=== PATIENT | male | born 1945 | race Caucasian/White ===

== ENCOUNTER → 2019-04-26 10:48 | Outpatient (BNVA) | payer MEDICARE, SELFPAY | PROVIDERS: Family Provider Family Medicine; PCP Family Medicine | DX: N18.3 Chronic kidney disease, stage 3 (moderate) (principal) | CPT/HCPCS: 80048 ==

== ENCOUNTER → 2019-05-18 17:04 | Outpatient (BNVA) | payer MEDICARE, SELFPAY | PROVIDERS: Family Provider Family Medicine; PCP Family Medicine; Visit Provider Family Medicine | DX: R42 Dizziness and giddiness (principal); E11.8 Type 2 diabetes mellitus with unspecified complications; F41.1 Generalized anxiety disorder; M25.551 Pain in right hip; I50.32 Chronic diastolic (congestive) heart failure; R21 Rash and other nonspecific skin eruption | CPT/HCPCS: 80048 ==

== ENCOUNTER → 2019-08-03 08:30 | Outpatient (BNVA) | payer MEDICARE, SELFPAY | PROVIDERS: Family Provider Family Medicine; PCP Family Medicine; Referring Provider Internal Medicine; Visit Provider Internal Medicine | DX: N18.9 Chronic kidney disease, unspecified (principal); E11.8 Type 2 diabetes mellitus with unspecified complications; Z79.4 Long term (current) use of insulin; I50.9 Heart failure, unspecified | CPT/HCPCS: 80069; 82306; 82570; 83036; 83880; 84156 ==

== ENCOUNTER 2019-12-13 02:32 | Emergency (ER) | payer MEDICARE, SELFPAY ==
[2019-12-13 02:34] VITALS: BP 89/72; PULSE 95; RESP 20; TEMP 37.2; O2SAT 94; BMI 38.7
--- NOTE | 2019-12-13 02:39 | XRR_ITS ---
PROCEDURE INFORMATION: Exam: XR Chest, 1 View Exam date and time: 12/13/2019 3:03 AM Age: 74 years old Clinical indication: Shortness of breath and other: Weakness; Patient HX: C/O shortness of breath and weakness TECHNIQUE: Imaging protocol: XR of the chest Views: 1 view. COMPARISON: CR Chest 1 [place] [id number] 04/28/2016 3:10 PM FINDINGS: Lungs: Lungs are well aerated without a focal area of consolidation. Pleural space: Unremarkable. No pleural effusion. No pneumothorax. Heart/Mediastinum: Unremarkable. No cardiomegaly. Bones/joints: Severe degenerative changes within the glenohumeral joints XR/XR chest 1V portable [id number] IMPRESSION: Lungs are well aerated without a focal area of consolidation.
--- NOTE | 2019-12-13 02:39 | CTR_ITS ---
PROCEDURE INFORMATION: Exam: CT Head Without Contrast Exam date and time: 12/13/2019 2:40 AM Age: 74 years old Clinical indication: Weakness, extremity; Bilateral TECHNIQUE: Imaging protocol: Computed tomography of the head without contrast. Radiation optimization: All CT scans at this facility use at least one of these dose optimization techniques: automated exposure control; mA and/or kV adjustment per patient size (includes targeted exams where dose is matched to clinical indication); or iterative reconstruction. COMPARISON: No relevant prior studies available. RADIATION DOSE METRICS: Total DLP (mGy-cm): 965.15 FINDINGS: Brain: No acute intracranial hemorrhage or mass effect. There is decreased attenuation in the periventricular white matter, likely from microvascular disease. No definite acute infarct by CT. MRI could be more sensitive/specific for detection, as clinically directed. Ventricles: Ventricle size is normal for age. Bones/joints: No definite acute skull fracture. Sinuses: Included paranasal sinuses are essentially clear. Mastoid air cells: No significant acute finding. Vasculature: Vascular calcifications in the internal carotid and vertebral basilar systems. CT/CT head wo con* [id number] IMPRESSION: 1. No acute intracranial hemorrhage or mass effect. 2. Changes of microvascular disease. 3. No definite acute infarct by CT, see above. 4. Other findings discussed above. Radiation Dose CTDIVOL = (mGy): DLP = 965.15 (mGy-cm)
--- NOTE | 2019-12-13 02:39 | ECG_ITS ---
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 Measurements Intervals [place] Rate: 99 P: 48 AR: 176 QRS: -22 QRSD: 138 T: 28 QT: 367 QTc: 471 Interpretive Statements SINUS RHYTHM WITH FREQUENT VENTRICULAR PREMATURE COMPLEXES RIGHT BUNDLE BRANCH BLOCK [120+ ms QRS DURATION, UPRIGHT V1, 40+ ms S IN I/aVL/V4/V5/V6] INFERIOR MYOCARDIAL INFARCTION , PROBABLY OLD [40+ ms Q WAVE AND/OR ST/T ABNORMALITY IN II/aVF] Compared to ECG 09/04/2016 13:58:53 Myocardial infarct finding now present Electronically Signed On 12-13-2019 18:50:14 CDT by Moe Cahvarria M.D. [email or web address]/store/OM/[id number]
--- NOTE | 2019-12-13 02:56 | ED_ITS ---
HPI - Weakness General: Chief complaint: Weakness Stated complaint: WEAKNESS Time Seen by Provider: 12/13/19 02:33 Source: patient and EMS Mode of arrival: EMS Limitations: no limitations History of Present Illness: HPI Narrative: 74-year-old male states his last week and he has been having generalized weakness at home. Patient lives with family states he has difficulty walking and has not been taking care of himself. Patient has had decreased oral intake. Patient here is disheveled. He denies any chest pain or abdominal pain. He has had some confusion and does have chronic dementia as well. Denies any fevers. Complaint: generalized weakness Onset (ago): day(s) Associated symptoms: Denies chest pain, chills, dysuria, easy bruising, fever(s), nausea or vomiting Review of Systems Const: Denies: fever(s), chills, body aches or change in appetite Eyes: Denies: blurry vision or eye discomfort ENMT: Denies: throat pain or dental pain Card: Denies: chest pain Resp: Denies: dyspnea GI: Denies: abdominal pain, nausea, vomiting or diarrhea : Denies: dysuria Musc: Denies: neck pain or back pain Skin/Breast: Denies: rash Neuro: Reports: weakness in extremities Psych: Denies: depression Michael/Lymph: Denies: easy bruising All/Imm: Denies: urticaria PFSH ED PFSH: Medical History Arteriosclerotic cardiovascular disease Chronic pain syndrome CKD (chronic kidney disease) Follows with Nephrology Congestive heart failure No on K replacement due to hx hyperkalemia Controlled diabetes mellitus with complication, with long-term current use of insulin COPD (chronic obstructive pulmonary disease) Diabetic neuropathy associated with type 2 diabetes mellitus Essential hypertension MERT (generalized anxiety disorder) Hyperkalemia Hyperlipidemia IBS (irritable bowel syndrome) Left kidney mass Toe osteomyelitis, right Social History Smoking and tobacco status: former smoker Alcohol intake: former Current gender identity: Male Physical Exam Const: COMMON NORMALS: patient oriented x3 GENERAL APPEARANCE: disheveled and ill appearing HENMT: COMMON NORMALS: normocephalic and atraumatic HEAD & SCALP: normocephalic and atraumatic Eye: COMMON NORMALS: Equal, round and reactive pupils present and EOMs intact bilaterally PUPIL: Yes Equal, round and reactive pupils present Neck/C-Spine: COMMON NORMALS: full ROM and supple Chest: COMMONS NORMALS: normal inspection of the chest and normal palpation of entire chest wall Resp: COMMON NORMALS: normal respiratory effort, No retractions, No use of accessory muscles and clear to auscultation bilaterally AUSCULTATION: clear to auscultation bilaterally Cardio: COMMON NORMALS: regular rate, regular rhythm and No murmurs present (Cardio) RATE: regular rate RHYTHM: regular rhythm GI: COMMON NORMALS: Normal to inspection, nondistended, normoactive bowel sounds present, Soft to palpation, non-tender and no masses PALPATION: Yes Soft to palpation Extremity: COMMON NORMALS: normal to inspection and full ROM Neuro: COMMON NORMALS: patient oriented x3, moves all extremities and no focal motor deficits Psych: COMMON NORMALS: mental status grossly normal, Normal thought process present and cooperative THOUGHT PROCESS: Normal thought process present Skin: COMMON NORMALS: no rashes or lesions noted and no wounds GENERAL SKIN EXAM: no rashes or lesions noted Course Vital Signs: Vital signs: Vital Signs Temperature 99.0 F 12/13/19 02:34 Pulse Rate 88 12/13/19 05:22 Respiratory Rate 22 H 12/13/19 06:16 Blood Pressure 142/70 12/13/19 05:22 Pulse Oximetry 95 12/13/19 05:22 MDM - Weakness MDM Narrative: Medical decision making narrative: 74-year-old male who presents here with generalized weakness and low-grade fevers and slight dyspnea. Had a long talk with family and patient he states that he has been too weak to ambulate or take care of himself. Patient did test positive for coronavirus. Family states he not feel that he is safe at home at this time due to his weakness. Do not have any bed availability here for the viral ICU for coronavirus. Will transfer to [facility] at this time for bed availability. Lab Data: Labs: Lab Results 12/13/19 12/13/19 12/13/19 Range/Units 02:45 02:45 03:11 WBC 5.9 (4.0-10.0) 10^3/ uL RBC 4.00 L (4.1-5.3) 10^6/u L Hgb 11.6 L (11.7-16.6) g/dL Hct 36.4 L (42.0-52.0) % MCV 91.0 (80-94) fL MCH 29.0 (28.0-34.0) pg MCHC 31.9 (30.0-36.0) g/dL RDW 15.8 H (12.1-15.1) % Plt Count 270 (130-400) 10^3/c mm MPV 9.1 (7.4-10.4) fL Neut % (Auto) 76.9 % Lymph % (Auto) 13.8 % [place] % (Auto) 8.4 % Eos % (Auto) 0.3 % Baso % (Auto) 0.3 % Neut # (Auto) 4.55 (1.8-7.7) 10^3/u L Lymph # (Auto) 0.8 (0.8-4.8) 10^3/u L [place] # (Auto) 0.5 (0.2-0.9) 10^3/u L Eos # (Auto) 0.0 (0.0-0.8) 10^3/u L Baso # (Auto) 0.0 (0.0-0.1) 10^3/u L Nucleated RBC % (a uto) 0 % Nucleated RBCs # 0.0 /100WBC PT 12.40 (12.1-14.9) SECO NDS INR 0.90 (0.8-1.2) Sodium 133 L (136-145) mmol/L Potassium 5.3 H (3.5-5.1) mmol/L Chloride 99 (98-107) mmol/L Carbon Dioxide 22 (22-29) mmol/L Anion Gap 17.3 (5-19) BUN 31 H (8-23) mg/dL Creatinine 2.2 H (0.7-1.2) mg/dL GFR Calculation Not Reportable Glucose 106 (65-115) mg/dL Calculated Osmolal ity 274 L (285-295) mOsm/k g Lactate (0.5-2.2) mmol/L Calcium 8.9 (8.5-10.5) mg/dL Magnesium 2.0 (1.7-2.3) mg/dL Total Bilirubin 0.2 (0.15-1.2) mg/dL AST 33 (0-40) U/L ALT 25 (0-41) U/L Alkaline Phosphata se 142 H (40-130) IU/L Total Protein 7.0 (6.6-8.7) g/dL Albumin 3.9 (3.5-5.2) g/dL Globulin 3.1 (1.3-4.6) g/dL Urine Color (Yellow) Urine Appearance (CLEAR) Urine pH (5-7) Ur Specific Gravit y (1.005-1.030) Urine Protein (Negative) Urine Glucose (UA) (Normal) Urine Ketones (Negative) Urine Blood (Negative) Urine Nitrate (Negative) Urine Bilirubin (NEGATIVE) Urine Urobilinogen (Negative) mg/dL Ur Leukocyte Laila ase (Negative) Urine RBC (0-2) /hpf Urine WBC (0-5) /hpf Ur Squamous Epith Cells (0-5) Amorphous Sediment Urine Bacteria (NONE) SARS-CoV-2 Ag (Rap id) (Negative) 12/13/19 12/13/19 12/13/19 Range/Units 03:11 03:40 04:45 WBC (4.0-10.0) 10^3/ uL RBC (4.1-5.3) 10^6/u L Hgb (11.7-16.6) g/dL Hct (42.0-52.0) % MCV (80-94) fL MCH (28.0-34.0) pg MCHC (30.0-36.0) g/dL RDW (12.1-15.1) % Plt Count (130-400) 10^3/c mm MPV (7.4-10.4) fL Neut % (Auto) % Lymph % (Auto) % [place] % (Auto) % Eos % (Auto) % Baso % (Auto) % Neut # (Auto) (1.8-7.7) 10^3/u L Lymph # (Auto) (0.8-4.8) 10^3/u L [place] # (Auto) (0.2-0.9) 10^3/u L Eos # (Auto) (0.0-0.8) 10^3/u L Baso # (Auto) (0.0-0.1) 10^3/u L Nucleated RBC % (a uto) % Nucleated RBCs # /100WBC PT (12.1-14.9) SECO NDS INR (0.8-1.2) Sodium (136-145) mmol/L Potassium (3.5-5.1) mmol/L Chloride (98-107) mmol/L Carbon Dioxide (22-29) mmol/L Anion Gap (5-19) BUN (8-23) mg/dL Creatinine (0.7-1.2) mg/dL GFR Calculation Glucose (65-115) mg/dL Calculated Osmolal ity (285-295) mOsm/k g Lactate 1.0 (0.5-2.2) mmol/L Calcium (8.5-10.5) mg/dL Magnesium (1.7-2.3) mg/dL Total Bilirubin (0.15-1.2) mg/dL AST (0-40) U/L ALT (0-41) U/L Alkaline Phosphata se (40-130) IU/L Total Protein (6.6-8.7) g/dL Albumin (3.5-5.2) g/dL Globulin (1.3-4.6) g/dL Urine Color Yellow (Yellow) Urine Appearance Clear (CLEAR) Urine pH 5 (5-7) Ur Specific Gravit y 1.020 (1.005-1.030) Urine Protein 1+ H (Negative) Urine Glucose (UA) Norm (Normal) Urine Ketones Negative (Negative) Urine Blood Neg (Negative) Urine Nitrate Negative (Negative) Urine Bilirubin Neg (NEGATIVE) Urine Urobilinogen Norm (Negative) mg/dL Ur Leukocyte Laila ase Negative (Negative) Urine RBC None (0-2) /hpf Urine WBC None (0-5) /hpf Ur Squamous Epith Cells None (0-5) Amorphous Sediment Not Reportable Urine Bacteria Trace (NONE) SARS-CoV-2 Ag (Rap id) Positive H (Negative) Imaging Data^: CT Head: Attestation: I personally reviewed and interpreted this imaging study as follows: Radiologist's impression: [address] [address] [address] Scan Report Signed Patient: Tom Garza Unit #: [id number] : 1945 Age/Sex: 74 / M ADM Date: 12/13/19 Loc: ER Room/Bed: Attending Dr: Ordering Provider/Ordering MD: Jae Suazo MD Date of Service: 12/13/19 Procedure(s): CT head wo con* [id number] Accession Number(s): [id number] Report Number: [id number] PROCEDURE INFORMATION: Exam: CT Head Without Contrast Exam date and time: 12/13/2019 2:40 AM Age: 74 years old Clinical indication: Weakness, extremity; Bilateral TECHNIQUE: Imaging protocol: Computed tomography of the head without contrast. Radiation optimization: All CT scans at this facility use at least one of these dose optimization techniques: automated exposure control; mA and/or kV adjustment per patient size (includes targeted exams where dose is matched to clinical indication); or iterative reconstruction. COMPARISON: No relevant prior studies available. RADIATION DOSE METRICS: Total DLP (mGy-cm): 965.15 FINDINGS: Brain: No acute intracranial hemorrhage or mass effect. There is decreased attenuation in the periventricular white matter, likely from microvascular disease. No definite acute infarct by CT. MRI could be more sensitive/specific for detection, as clinically directed. Ventricles: Ventricle size is normal for age. Bones/joints: No definite acute skull fracture. Sinuses: Included paranasal sinuses are essentially clear. Mastoid air cells: No significant acute finding. Vasculature: Vascular calcifications in the internal carotid and vertebral basilar systems. CT/CT head wo con* [id number] IMPRESSION: 1. No acute intracranial hemorrhage or mass effect. 2. Changes of microvascular disease. 3. No definite acute infarct by CT, see above. 4. Other findings discussed above. EKG Data^: EKG 1: Attestation: I personally reviewed and interpreted this EKG as follows: EKG interpretation date: 12/13/19 EKG interpretation time: 03:36 Interpretation: nsr [address] or t wave abnormalities qrs 138 qtc 423 Discharge Plan Discharge Patient Disposition: Home Clinical Impression: COVID-19, Weakness Condition: Stable Prescriptions: No Action oxycodone-acetaminophen 5-325 mg tablet 1 tab PO DAILY PRN (Reason: pain) 30 Days Qty: 30 RF: 0 clotrimazole-betamethasone 1-0.05 % cream 1 applic TOPICAL BID 14 Days Qty: 45 RF: 1 (DME) pen needle, diabetic [Comfort EZ Pen [place]] 31 gauge x 1/4 needle See Rx Instructions .ROUTE .MEDSUPPLY Qty: 30 RF: 0 Combivent Respimat 20-100 mcg/actuation mist 1 puff INHALATION QID RF: 0 nitroglycerin [Nitrostat] 0.4 mg tablet, sublingual 0.4 mg SUBLINGUAL Q5M PRNRF: 0 carvedilol 3.125 mg tablet 3.125 mg PO BID 90 Days Qty: 180 RF: 1 azithromycin 250 mg tablet See Rx Instructions PO .COMPLEX Qty: 6 RF: 0 isosorbide mononitrate 30 mg tablet extended release 24 hr 30 mg PO QAM Qty: 90 RF: 0 Combivent Respimat 20-100 mcg/actuation mist 1 puff INHALATION QID Qty: 4 RF: 2 duloxetine 30 mg capsule,delayed release(DR/EC) See Rx Instructions .ROUTE .COMPLEX Qty: 60 RF: 2 fluticasone propionate 50 mcg/actuation spray,suspension See Rx Instructions .ROUTE .COMPLEX Qty: 16 RF: 1 sitagliptin [Januvia] 25 mg tablet See Rx Instructions .ROUTE .COMPLEX Qty: 90 RF: 1 insulin detemir U-100 [Levemir FlexTouch U-100 Insuln] 100 unit/mL (3 mL) insulin pen See Rx Instructions .ROUTE .COMPLEX Qty: 15 RF: 1 clonazepam 0.5 mg tablet 0.5 mg PO BID 7 Days Qty: 14 RF: 0 Referrals: Jaymie Boss MD [Primary Care Provider] - Coding Level of Care Code ED Medical Operations Supervisor for Chg Fwd Exam Comprehensive
[2019-12-13 03:16] LABS: Alanine Aminotransferase 25 U/L (0-41); Albumin Level 3.9 g/dL (3.5-5.2); Alkaline Phosphatase 142 IU/L (40-130); Blood Urea Nitrogen 31 mg/dL (8-23); Calcium 8.9 mg/dL (8.5-10.5); Carbon Dioxide 22 mmol/L (22-29); Chloride 99 mmol/L (98-107); Globulin 3.1 g/dL (1.3-4.6); Glucose 106 mg/dL (65-115); Osmolality Calculated 274 mOsm/kg (285-295); Sodium 133 mmol/L (136-145); Total Bilirubin 0.2 mg/dL (0.15-1.2)
[2019-12-13] MEDS: sodium chloride 0.9% 1,000 ML 999 ML IV (03:16)
[2019-12-13 03:17] LABS: Anion Gap 17.3 (5-19); Aspartate Amino Transferase 33 U/L (0-40); Potassium 5.3 mmol/L (3.5-5.1)
[2019-12-13 03:37] LABS: Basophils % 0.3 %; Eosinophils % 0.3 %; Hematocrit 36.4 % (42.0-52.0); Hemoglobin 11.6 g/dL (11.7-16.6); Lymphocytes # 0.8 10^3/uL (0.8-4.8); Lymphocytes % 13.8 %; Mean Corpuscular HGB Conc 31.9 g/dL (30.0-36.0); Mean Platelet Volume 9.1 fL (7.4-10.4); Monocytes # 0.5 10^3/uL (0.2-0.9); Monocytes % 8.4 %; Neutrophils # 4.55 10^3/uL (1.8-7.7); Neutrophils % 76.9 %; Nucleated Red Blood Cells % 0 %; Platelet Count 270 10^3/cmm (130-400); Red Cell Distribution Width 15.8 % (12.1-15.1); White Blood Count 5.9 10^3/uL (4.0-10.0)
[2019-12-13 04:50] LABS: Add Urine Microscopic? YES; Bacteria Urine TRACE; Bilirubin Urine Neg (NEGATIVE); Blood Urine Neg (Negative); Glucose Urine UA Norm (Normal); Ketones Urine Negative (Negative); Leukocyte Esterase Urine Negative (Negative); Nitrate Urine Negative (Negative); Protein Urine 1+ (Negative); Urine Appearance Clear (CLEAR); Urine Color Yellow (Yellow); Urobilinogen Urine Norm (Negative); pH Urine 5 (5-7)
[2019-12-13 05:22] VITALS: BP 142/70; PULSE 88; RESP 22; O2SAT 95
[2019-12-13 05:25] LABS: SARS Covid-2 Antigen Positive (Negative)
--- NOTE | 2019-12-13 05:48 | PC.NURSE ---
Patient's daughter was asked to leave the patient's room when the patient was to be covid tested. Patient test results are positive. Updated patient's daughter on her quarentine status along with the family members that live with the patient.
[2019-12-13 06:16] VITALS: RESP 22
[2019-12-13] MEDS: morphine 4 mg/mL SDV 1 mL IVP (06:16)
[2019-12-13] MEDS: sodium chloride 0.9% 500 ML 999 ML IV (06:16)
[2019-12-13 06:36] LABS: Procalcitonin 0.29 ng/mL (0-0.5)
[2019-12-13 06:39] VITALS: BP 173/84; PULSE 87; RESP 20; O2SAT 92
--- NOTE | 2019-12-13 06:43 | PC.NURSE ---
Patient's daughter (Lupis) called for an update. Family asks that they be notified when the patient leaves to be transferred to another facility. Lupis If No Answer then call Amy
[2019-12-13 06:47] LABS: C Reactive Protein 39.1 mg/L (0.0-4.9)
[2019-12-13 06:52] LABS: Fibrinogen 413 mg/dL (174-498)
--- NOTE | 2019-12-13 06:55 | PC.NURSE ---
Resumed care at this time. SCOOTER Joseph called report to Alex Yap.
[2019-12-13 07:35] VITALS: BP 130/82; PULSE 93; RESP 18; O2SAT 90
== END 2019-12-13 07:41 | disposition other institution (70) ==
PROVIDERS: Emergency Provider Emergency Medicine; PCP Family Medicine
DX: U07.1 COVID-19 (principal); R53.1 Weakness; Z79.4 Long term (current) use of insulin; I11.0 Hypertensive heart disease with heart failure; I50.9 Heart failure, unspecified; J44.9 Chronic obstructive pulmonary disease, unspecified; E11.40 Type 2 diabetes mellitus with diabetic neuropathy, unspecified; E78.5 Hyperlipidemia, unspecified; Z87.891 Personal history of nicotine dependence
CPT/HCPCS: 12345; 70450; 71045; 80053; 81001; 83605; 83735; 84145; 85025; 85384; 85610; 86140; 87426; 93005; 96360; 96361; 96374; 96375; 99283; 99285; J2270; J7030; J7040

== ENCOUNTER 2020-01-01 15:08 | Emergency (ER) | payer MEDICARE, SELFPAY ==
[2020-01-01 15:11] VITALS: BP 170/71; PULSE 122; RESP 20; TEMP 38.2; O2SAT 100; BMI 35.6
--- NOTE | 2020-01-01 15:18 | XRR_ITS ---
PROCEDURE INFORMATION: Exam: XR Chest, 1 View Exam date and time: 01/01/2020 3:42 PM Age: 74 years old Clinical indication: Shortness of breath; Additional info: SOB TECHNIQUE: Imaging protocol: XR of the chest Views: 1 view. COMPARISON: CR XR chest 1V portable [id number] 12/13/2019 2:54 AM FINDINGS: Lungs: Unremarkable. No consolidation. Pleural space: Unremarkable. No pleural effusion. No pneumothorax. Heart/Mediastinum: Unremarkable. No cardiomegaly. Bones/joints: Unremarkable. XR/XR chest 1V portable [id number] IMPRESSION: No acute findings.
--- NOTE | 2020-01-01 15:19 | ECG_ITS ---
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 Measurements Intervals [place] Rate: 116 P: 72 IN: 179 QRS: -33 QRSD: 138 T: 54 QT: 331 QTc: 461 Interpretive Statements SINUS TACHYCARDIA WITH FREQUENT VENTRICULAR PREMATURE COMPLEXES LEFT AXIS DEVIATION [QRS AXIS < -30] RIGHT BUNDLE BRANCH BLOCK [120+ ms QRS DURATION, UPRIGHT V1, 40+ ms S IN I/aVL/V4/V5/V6] INFERIOR MYOCARDIAL INFARCTION , PROBABLY OLD Compared to ECG 12/13/2019 03:36:52 Left-axis deviation now present Sinus rhythm no longer present Electronically Signed On 01-01-2020 18:55:02 CDT by Perico Cazares M.D. [id number]
[2020-01-01] MEDS: acetaminophen 325 mg Tablet 650 MG PO (15:28)
[2020-01-01] MEDS: ondansetron 2 mg/ML SDV 2 mL 4 MG IV (15:28)
[2020-01-01 15:46] VITALS: O2SAT 100
[2020-01-01 15:50] LABS: Basophils # 0.1 10^3/uL (0.0-0.1); Basophils % 0.7 %; Eosinophils # 0.2 10^3/uL (0.0-0.8); Eosinophils % 2.9 %; Lymphocytes # 1.1 10^3/uL (0.8-4.8); Lymphocytes % 15.5 %; Mean Corpuscular HGB Conc 32.1 g/dL (30.0-36.0); Mean Corpuscular Hemoglobin 28.8 pg (28.0-34.0); Mean Corpuscular Volume 89.7 fL (80-94); Mean Platelet Volume 8.9 fL (7.4-10.4); Monocytes # 0.8 10^3/uL (0.2-0.9); Monocytes % 10.7 %; Neutrophils # 5.14 10^3/uL (1.8-7.7); Neutrophils % 69.9 %; Nucleated Red Blood Cells % 0 %; Platelet Count 297 10^3/cmm (130-400); Red Blood Count 3.12 10^6/uL (4.1-5.3); Red Cell Distribution Width 15.5 % (12.1-15.1); White Blood Count 7.4 10^3/uL (4.0-10.0)
[2020-01-01 16:02] LABS: INR 0.97 (0.8-1.2)
[2020-01-01 16:04] LABS: D Dimer 2.28 ug/mIFEU (0-0.59)
[2020-01-01 16:06] LABS: Lactic Sepsis W/Reflex 1.1 mmol/L (0.5-2.2)
[2020-01-01 16:09] LABS: Troponin(5th) Baseline 126 ng/L (0-15)
[2020-01-01 16:16] LABS: NT Pro B Type Natriuretic Pept 1131 pg/mL (0-125); Procalcitonin 0.38 ng/mL (0-0.5)
[2020-01-01] MEDS: sodium chloride 0.9% 1,000 ML 150 ML IV (16:24)
[2020-01-01 16:27] LABS: Alanine Aminotransferase 20 U/L (0-41); Albumin Level 3.5 g/dL (3.5-5.2); Alkaline Phosphatase 115 IU/L (40-130); Anion Gap 15.5 (5-19); Aspartate Amino Transferase 21 U/L (0-40); Blood Urea Nitrogen 22 mg/dL (8-23); C Reactive Protein 48.1 mg/L (0.0-4.9); Calcium 8.1 mg/dL (8.5-10.5); Carbon Dioxide 15 mmol/L (22-29); Chloride 104 mmol/L (98-107); Creatinine Clr Calc Pharmacy 45.0226; Glucose 129 mg/dL (65-115); Magnesium 1.5 mg/dL (1.7-2.3); Osmolality Calculated 275 mOsm/kg (285-295); Potassium 4.5 mmol/L (3.5-5.1); Sodium 130 mmol/L (136-145); Total Bilirubin 0.2 mg/dL (0.15-1.2); Total Protein 6.5 g/dL (6.6-8.7)
[2020-01-01 16:33] VITALS: BP 126/89; PULSE 98; TEMP 37.5; O2SAT 99
[2020-01-01 17:12] LABS: Influenza A by IFA Negative (Negative); Influenza B by IFA Negative (Negative)
[2020-01-01 17:13] LABS: SARS Covid-2 Antigen Negative (Negative)
--- NOTE | 2020-01-01 17:19 | ED_ITS ---
HPI - Arrhythmia/Palpitations General: Chief Complaint: Arrhythmia/Palpitations Stated Complaint: sob/fast HR/COVID + Time Seen by Provider: 01/01/20 15:18 History of Present Illness: HPI narrative: This patient is a 74-year-old male who presents today with chest pain and shortness of breath. According to his family he has been confused and they think he is hallucinating. They think he might have dementia. His about 3 weeks ago and he has been going downhill since then. Also shortly after her he contracted coronavirus and was admitted to [facility] although his daughter tells me that he was asymptomatic . He had a appointment at the doctor today and they were concerned that he was breathing hard and tachycardic. Apparently he has been complaining of a cough. He was sent to the ED for evaluation. On arrival he complained of some chest pain and shortness of breath. He was very weak and required assistance from 2 staff members to get him from the wheelchair to the bed. He is a diabetic. He is not able to give a very detailed history. Associated symptoms: Reports cough Review of Systems General: Reports: 10 or more systems reviewed and unremarkable except in HPI and below (Questionable reliability) Const: Reports: malaise Card: Reports: chest pain, edema and swelling of feet/ankles GI: Reports: diarrhea (All the time per patient) Skin/Breast: Reports: non-healing lesions (Toes, says he sees wound care in [place]) Psych: Reports: depression and sleeping less (Family reports that he has been up since 1 in the morning yelling for his .) [facility] PFSH: Medical History Arteriosclerotic cardiovascular disease Chronic pain syndrome CKD (chronic kidney disease) Follows with Nephrology Congestive heart failure No on K replacement due to hx hyperkalemia Controlled diabetes mellitus with complication, with long-term current use of insulin COPD (chronic obstructive pulmonary disease) Diabetic neuropathy associated with type 2 diabetes mellitus Essential hypertension MERT (generalized anxiety disorder) Hyperkalemia Hyperlipidemia IBS (irritable bowel syndrome) Left kidney mass Toe osteomyelitis, right Social History Smoking and tobacco status: former smoker Alcohol intake: former Current gender identity: Male Physical Exam Narrative: EXAM NARRATIVE: Unkempt and frail-appearing Const: COMMON NORMALS: alert GENERAL APPEARANCE: cooperative HENMT: HEAD & SCALP: normal to inspection FACE & SINUS: normal facial exam Eye: GENERAL EYE: appearance normal, both eyes and all related structures Neck/C-Spine: COMMON NORMALS: supple, no meningeal signs and no JVD Chest: COMMONS NORMALS: normal inspection of the chest Resp: EFFORT & INSPECTION: Yes tachypneic, Yes labored, Yes retractions and Yes uses accessory muscles AUSCULTATION: rhonchi (Scattered) Cardio: COMMON NORMALS: no JVD, regular rate, regular rhythm and No murmurs present (Cardio) RATE: regular rate RHYTHM: regular rhythm GI: COMMON NORMALS: Normal to inspection, nondistended, normoactive bowel sounds present, Soft to palpation and non-tender INSPECTION: Yes normal to inspection AUSCULTATION: Yes normoactive bowel sounds PALPATION: Yes Soft to palpation Back/Pelvis: COMMON NORMALS: thoracic and lumbar spine normal to inspection Extremity: NARRATIVE EXTREMITY EXAM: Edema both lower extremities but with wraps in place. GENERAL: Yes normal exam except as noted and Yes amputation (Fourth toe on the right foot) OTHER: Wounds on the left great toe and the ri ght fifth toe. These do not appear to be acutely infected and were dressed. Neuro: COMMON NORMALS: moves all extremities, no focal motor deficits and no sensory deficits noted SENSORIUM/ORIENTATION: Yes alert MENINGEAL SIGNS: Yes no meningeal signs Psych: COMMON NORMALS: mental status grossly normal, cooperative and normal affect Skin: COMMON NORMALS: no rashes or lesions noted and turgor normal GENERAL SKIN EXAM: no rashes or lesions noted and turgor normal Course ED course: This patient does not want to be admitted to the hospital. He lives with his younger daughter and his older daughter was here in the ED with him and I spoke with her several times. They are concerned about his behavior and what they think is progressive dementia. In the ED he is completely awake, alert, appropriate. He is appropriately distraught still about his 's passing recently. His labs were notable for a low CO2. He was negative for COVID on this testing sats were 100% on room air. His daughter try to convince him to stay but he continued to insist on leaving. He has his own decision maker and I feel that he is competent right now to make that decision. He understands that I would like him to stay for further evaluation as I do not really know the cause of his symptoms today. I will respect his preference that he be discharged. Vital Signs: Vital signs: Vital Signs Temperature 99.5 F 01/01/20 16:33 Pulse Rate 99 01/01/20 19:18 Respiratory Rate 15 01/01/20 19:18 Blood Pressure 120/70 01/01/20 19:18 Pulse Oximetry 99 01/01/20 19:18 MDM - Arrhythmia/Palpitations Lab Data: Labs: Lab Results 01/01/20 01/01/20 01/01/20 Range/Units 15:30 15:30 15:30 WBC 7.4 (4.0-10.0) 10^3/ uL RBC 3.12 L (4.1-5.3) 10^6/u L Hgb 9.0 L (11.7-16.6) g/dL Hct 28.0 L (42.0-52.0) % MCV 89.7 (80-94) fL MCH 28.8 (28.0-34.0) pg MCHC 32.1 (30.0-36.0) g/dL RDW 15.5 H (12.1-15.1) % Plt Count 297 (130-400) 10^3/c mm MPV 8.9 (7.4-10.4) fL Neut % (Auto) 69.9 % Lymph % (Auto) 15.5 % [place] % (Auto) 10.7 % Eos % (Auto) 2.9 % Baso % (Auto) 0.7 % Neut # (Auto) 5.14 (1.8-7.7) 10^3/u L Lymph # (Auto) 1.1 (0.8-4.8) 10^3/u L [place] # (Auto) 0.8 (0.2-0.9) 10^3/u L Eos # (Auto) 0.2 (0.0-0.8) 10^3/u L Baso # (Auto) 0.1 (0.0-0.1) 10^3/u L Nucleated RBC % (a uto) 0 % Nucleated RBCs # 0.0 /100WBC PT 13.20 (12.1-14.9) SECO NDS INR 0.97 (0.8-1.2) D-Dimer 2.28 H (0-0.59) ug/mIFE U Sodium 130 L (136-145) mmol/L Potassium 4.5 (3.5-5.1) mmol/L Chloride 104 (98-107) mmol/L Carbon Dioxide 15 L (22-29) mmol/L Anion Gap 15.5 (5-19) BUN 22 (8-23) mg/dL Creatinine 1.7 H (0.7-1.2) mg/dL GFR Calculation Not Reportable Glucose 129 H (65-115) mg/dL Calculated Osmolal ity 275 L (285-295) mOsm/k g Lactic Acid (0.5-2.2) mmol/L Calcium 8.1 L (8.5-10.5) mg/dL Magnesium 1.5 L (1.7-2.3) mg/dL Total Bilirubin 0.2 (0.15-1.2) mg/dL AST 21 (0-40) U/L ALT 20 (0-41) U/L Alkaline Phosphata se 115 (40-130) IU/L Troponin T Baselin e (0-15) ng/L Troponin T 120 Min point [place] (0-15) ng/L Delta Troponin T (0-10) ABS# C-Reactive Protein 48.1 H (0.0-4.9) mg/L NT-Pro-B Natriuret Pep 1131 H (0-125) pg/mL Total Protein 6.5 L (6.6-8.7) g/dL Albumin 3.5 (3.5-5.2) g/dL Globulin 3.0 (1.3-4.6) g/dL Procalcitonin 0.38 (0-0.5) ng/mL Urine Color (Yellow) Urine Appearance (CLEAR) Urine pH (5-7) Ur Specific Gravit y (1.005-1.030) Urine Protein (Negative) Urine Glucose (UA) (Normal) Urine Ketones (Negative) Urine Blood (Negative) Urine Nitrate (Negative) Urine Bilirubin (Negative) Urine Urobilinogen (Negative) mg/dL Ur Leukocyte Laila ase (Negative) Urine RBC (0-2) /hpf Urine WBC (0-5) /hpf Ur Squamous Epith Cells (0-5) /hpf Amorphous Sediment Urine Bacteria (NONE) /hpf Influenza Type A A g (Negative) Influenza Type B A g (Negative) SARS-CoV-2 Ag (Rap id) (Negative) 01/01/20 01/01/20 01/01/20 Range/Units 15:30 15:30 16:20 WBC (4.0-10.0) 10^3/ uL RBC (4.1-5.3) 10^6/u L Hgb (11.7-16.6) g/dL Hct (42.0-52.0) % MCV (80-94) fL MCH (28.0-34.0) pg MCHC (30.0-36.0) g/dL RDW (12.1-15.1) % Plt Count (130-400) 10^3/c mm MPV (7.4-10.4) fL Neut % (Auto) % Lymph % (Auto) % [place] % (Auto) % Eos % (Auto) % Baso % (Auto) % Neut # (Auto) (1.8-7.7) 10^3/u L Lymph # (Auto) (0.8-4.8) 10^3/u L [place] # (Auto) (0.2-0.9) 10^3/u L Eos # (Auto) (0.0-0.8) 10^3/u L Baso # (Auto) (0.0-0.1) 10^3/u L Nucleated RBC % (a uto) % Nucleated RBCs # /100WBC PT (12.1-14.9) SECO NDS INR (0.8-1.2) D-Dimer (0-0.59) ug/mIFE U Sodium (136-145) mmol/L Potassium (3.5-5.1) mmol/L Chloride (98-107) mmol/L Carbon Dioxide (22-29) mmol/L Anion Gap (5-19) BUN (8-23) mg/dL Creatinine (0.7-1.2) mg/dL GFR Calculation Glucose (65-115) mg/dL Calculated Osmolal ity (285-295) mOsm/k g Lactic Acid 1.1 (0.5-2.2) mmol/L Calcium (8.5-10.5) mg/dL Magnesium (1.7-2.3) mg/dL Total Bilirubin (0.15-1.2) mg/dL AST (0-40) U/L ALT (0-41) U/L Alkaline Phosphata se (40-130) IU/L Troponin T Baselin e 126 H* (0-15) ng/L Troponin T 120 Min point [place] (0-15) ng/L Delta Troponin T (0-10) ABS# C-Reactive Protein (0.0-4.9) mg/L NT-Pro-B Natriuret Pep (0-125) pg/mL Total Protein (6.6-8.7) g/dL Albumin (3.5-5.2) g/dL Globulin (1.3-4.6) g/dL Procalcitonin (0-0.5) ng/mL Urine Color (Yellow) Urine Appearance (CLEAR) Urine pH (5-7) Ur Specific Gravit y (1.005-1.030) Urine Protein (Negative) Urine Glucose (UA) (Normal) Urine Ketones (Negative) Urine Blood (Negative) Urine Nitrate (Negative) Urine Bilirubin (Negative) Urine Urobilinogen (Negative) mg/dL Ur Leukocyte Laila ase (Negative) Urine RBC (0-2) /hpf Urine WBC (0-5) /hpf Ur Squamous Epith Cells (0-5) /hpf Amorphous Sediment Urine Bacteria (NONE) /hpf Influenza Type A A g (Negative) Influenza Type B A g (Negative) SARS-CoV-2 Ag (Rap id) Negative (Negative) 01/01/20 01/01/20 01/01/20 Range/Units 16:20 18:00 18:20 WBC (4.0-10.0) 10^3/ uL RBC (4.1-5.3) 10^6/u L Hgb (11.7-16.6) g/dL Hct (42.0-52.0) % MCV (80-94) fL MCH (28.0-34.0) pg MCHC (30.0-36.0) g/dL RDW (12.1-15.1) % Plt Count (130-400) 10^3/c mm MPV (7.4-10.4) fL Neut % (Auto) % Lymph % (Auto) % [place] % (Auto) % Eos % (Auto) % Baso % (Auto) % Neut # (Auto) (1.8-7.7) 10^3/u L Lymph # (Auto) (0.8-4.8) 10^3/u L [place] # (Auto) (0.2-0.9) 10^3/u L Eos # (Auto) (0.0-0.8) 10^3/u L Baso # (Auto) (0.0-0.1) 10^3/u L Nucleated RBC % (a uto) % Nucleated RBCs # /100WBC PT (12.1-14.9) SECO NDS INR (0.8-1.2) D-Dimer (0-0.59) ug/mIFE U Sodium (136-145) mmol/L Potassium (3.5-5.1) mmol/L Chloride (98-107) mmol/L Carbon Dioxide (22-29) mmol/L Anion Gap (5-19) BUN (8-23) mg/dL Creatinine (0.7-1.2) mg/dL GFR Calculation Glucose (65-115) mg/dL Calculated Osmolal ity (285-295) mOsm/k g Lactic Acid (0.5-2.2) mmol/L Calcium (8.5-10.5) mg/dL Magnesium (1.7-2.3) mg/dL Total Bilirubin (0.15-1.2) mg/dL AST (0-40) U/L ALT (0-41) U/L Alkaline Phosphata se (40-130) IU/L Troponin T Baselin e (0-15) ng/L Troponin T 120 Min point [place] 120.0 H (0-15) ng/L Delta Troponin T -6.0 L (0-10) ABS# C-Reactive Protein (0.0-4.9) mg/L NT-Pro-B Natriuret Pep (0-125) pg/mL Total Protein (6.6-8.7) g/dL Albumin (3.5-5.2) g/dL Globulin (1.3-4.6) g/dL Procalcitonin (0-0.5) ng/mL Urine Color Yellow (Yellow) Urine Appearance Clear (CLEAR) Urine pH 5 (5-7) Ur Specific Gravit y 1.010 (1.005-1.030) Urine Protein 1+ H (Negative) Urine Glucose (UA) Norm (Normal) Urine Ketones Negative (Negative) Urine Blood Neg (Negative) Urine Nitrate Negative (Negative) Urine Bilirubin Neg (Negative) Urine Urobilinogen Norm (Negative) mg/dL Ur Leukocyte Laila ase Negative (Negative) Urine RBC 0-4 H (0-2) /hpf Urine WBC 0-4 H (0-5) /hpf Ur Squamous Epith Cells 0-4 H (0-5) /hpf Amorphous Sediment Not Reportable Urine Bacteria 1+ H (NONE) /hpf Influenza Type A A g Negative (Negative) Influenza Type B A g Negative (Negative) SARS-CoV-2 Ag (Rap id) (Negative) Discharge Plan Discharge Patient Disposition: Home Clinical Impression: Grief Chest pain Qualifiers: Chest pain type: unspecified Qualified Code(s): R07.9 - Chest pain, unspecified Diabetic foot ulcer Qualifiers: Diabetic foot ulcer location: unspecified part of foot Diabetes mellitus type: type 2 Laterality: unspecified laterality Non-pressure ulcer stage: unspecified non-pressure ulcer stage Qualified Code(s): E11.621 - Type 2 diabetes mellitus with foot ulcer Condition: Stable Prescriptions: No Action (DME) pen needle, diabetic [Comfort EZ Pen [place]] 31 gauge x 1/4 needle See Rx Instructions .ROUTE .MEDSUPPLY Qty: 30 RF: 0 nitroglycerin [Nitrostat] 0.4 mg tablet, sublingual 0.4 mg SUBLINGUAL Q5M PRN (Reason: CHEST PAINS) RF: 0 carvedilol 3.125 mg tablet 3.125 mg PO BID 90 Days Qty: 180 RF: 1 isosorbide mononitrate 30 mg tablet extended release 24 hr 30 mg PO QAM Qty: 90 RF: 0 fluticasone propionate 50 mcg/actuation spray,suspension See Rx Instructions .ROUTE .COMPLEX Qty: 16 RF: 1 sitagliptin [Januvia] 25 mg tablet See Rx Instructions .ROUTE .COMPLEX Qty: 90 RF: 1 insulin detemir U-100 [Levemir FlexTouch U-100 Insuln] 100 unit/mL (3 mL) insulin pen See Rx Instructions .ROUTE .COMPLEX Qty: 15 RF: 1 Syb-Qvrp-Frlmfp 1 ea PO DAILY PRN (Reason: Pain) RF: 0 furosemide 40 mg tablet 80 mg PO BID RF: 0 hydrocodone-acetaminophen 5-325 mg tablet 1 tab PO PRN PRN (Reason: Pain) RF: 0 spironolactone 25 mg tablet 25 mg PO DAILY RF: 0 Cholestyramine Light 4 gram powder 4 g PO DAILY RF: 0 Combivent Respimat 20-100 mcg/actuation Mist 1 puff INHALATION 6XD RF: 0 oxycodone-acetaminophen 1 tab PO PRN PRN (Reason: Pain) RF: 0 Discharge Orders: Discharge Order (Routine); Ordered 01/01/20 Ordered By: Brii Melo Referrals: Jaymie Boss MD [Primary Care Provider] - Discharge Diet: Usual diet Discharge Activity: Resume usual activity Patient Instructions: Chest Pain (ED) Activity Restrictions/Additional Instructions: Follow-up with your primary care provider to discuss the episode of chest pain today as well as to discuss help with sleep and behavior disturbances. Return to the ED if you wish to have further evaluation and treatment here. Discharge Date/Time: 01/01/20 20:11 Coding Level of Care Code ED Pilot Instructor for Huang Fwd Exam Comprehensive
[2020-01-01 18:36] VITALS: BP 113/83; PULSE 89; O2SAT 100
[2020-01-01 18:42] LABS: Urine Appearance Clear (CLEAR); Urine Color Yellow (Yellow); pH Urine 5 (5-7)
[2020-01-01 18:43] LABS: Add Urine Microscopic? YES; Bilirubin Urine Neg (Negative); Blood Urine Neg (Negative); Glucose Urine UA Norm (Normal); Ketones Urine Negative (Negative); Leukocyte Esterase Urine Negative (Negative); Nitrate Urine Negative (Negative); Protein Urine 1+ (Negative); Urobilinogen Urine Norm (Negative)
[2020-01-01 18:52] LABS: Bacteria Urine 1+ /hpf; Squamous Epithelial Cell Urine 0-4 /hpf (0-5); WBC Urine 0-4 /hpf (0-5)
[2020-01-01 18:53] LABS: Add Urine Culture? No; RBC Urine 0-4 /hpf (0-2)
--- NOTE | 2020-01-01 19:04 | PC.NURSE ---
report received from SCOOTER Holguin and care transferred to SCOOTER Foster
[2020-01-01 19:18] VITALS: BP 120/70; PULSE 99; RESP 15; O2SAT 99
--- NOTE | 2020-01-01 19:22 | PC.NURSE ---
patient daughter in room with patient.
== END 2020-01-01 20:11 | disposition home or self-care (01) ==
PROVIDERS: Emergency Provider Emergency Medicine; PCP Family Medicine
DX: R07.9 Chest pain, unspecified (principal); F43.21 Adjustment disorder with depressed mood; E11.621 Type 2 diabetes mellitus with foot ulcer; Z79.4 Long term (current) use of insulin; U07.1 COVID-19; I11.0 Hypertensive heart disease with heart failure; I50.9 Heart failure, unspecified; J44.9 Chronic obstructive pulmonary disease, unspecified; E11.40 Type 2 diabetes mellitus with diabetic neuropathy, unspecified; E78.5 Hyperlipidemia, unspecified; Z87.891 Personal history of nicotine dependence
CPT/HCPCS: 12345; 36415; 71045; 80053; 81001; 83605; 83735; 83880; 84145; 84484; 85025; 85378; 85610; 86140; 87426; 87804; 93005; 96360; 96374; 99284; J2405; J7030

== ENCOUNTER → 2020-01-18 16:49 | Outpatient (BNVA) | payer MEDICARE, SELFPAY | PROVIDERS: PCP Family Medicine; Visit Provider Internal Medicine | DX: N18.30 Chronic kidney disease, stage 3 unspecified (principal) | CPT/HCPCS: 80069; 82310; 83970; 85025 ==

== ENCOUNTER → 2020-01-31 10:51 | Outpatient (BNVA) | payer MEDICARE, SELFPAY | PROVIDERS: PCP Family Medicine; Visit Provider Internal Medicine | DX: N18.9 Chronic kidney disease, unspecified (principal); Z23 Encounter for immunization | CPT/HCPCS: 82043 ==

== ENCOUNTER → 2020-04-16 14:47 | Outpatient (BNVA) | payer MEDICARE, SELFPAY | PROVIDERS: PCP Family Medicine; Visit Provider Family Medicine | DX: E11.42 Type 2 diabetes mellitus with diabetic polyneuropathy (principal); I10 Essential (primary) hypertension; E11.9 Type 2 diabetes mellitus without complications; J44.9 Chronic obstructive pulmonary disease, unspecified; E11.8 Type 2 diabetes mellitus with unspecified complications; I50.9 Heart failure, unspecified; Z79.4 Long term (current) use of insulin; I50.32 Chronic diastolic (congestive) heart failure; F41.1 Generalized anxiety disorder; E11.621 Type 2 diabetes mellitus with foot ulcer; G89.4 Chronic pain syndrome; E87.5 Hyperkalemia; L97.509 Non-pressure chronic ulcer of other part of unspecified foot with unspecified severity; F43.21 Adjustment disorder with depressed mood; F32.3 Major depressive disorder, single episode, severe with psychotic features; F01.51 Vascular dementia, unspecified severity, with behavioral disturbance; Z71.89 Other specified counseling | CPT/HCPCS: 80053; 83036; 85025 ==